=== PATIENT | male | born 1945 | race Caucasian/White ===

== ENCOUNTER 2020-12-03 17:01 | Observation (INO) | payer MEDICARE, OTHER ==
[~2020-12-03] VITALS: Ht 188 cm; Wt 65.8 kg
[~2020-12-03 17:01] MED LIST: ASPIRIN EC81 MG PO; ATORVASTATIN CA20 MG PO; CATAPRES 0.1MG0.1 MG PO; VASOTEC10 MG PO
[2020-12-03 17:39] LABS: HEMOGLOBIN 15.3 gm/dl (14.0-17.5); RED BLOOD COUNT 4.77 M/UL (4.20-5.50)
[2020-12-03 17:54] LABS: BUN/CREATININE RATIO 8 (0-10)
[2020-12-04 05:17] LABS: HEMOGLOBIN 15.6 gm/dl (14.0-17.5); RED BLOOD COUNT 4.86 M/UL (4.20-5.50)
[2020-12-04 05:41] LABS: BUN/CREATININE RATIO 10 (0-10)
[2020-12-04] MEDS ORDERED: VENTOLIN HFA 66.7 GM INH (10:14)
--- NOTE | 2020-12-05 19:05 | NUR ---
reported to dr. penny patient and family refusal to restart another iv access.
--- NOTE | 2020-12-05 19:30 | NUR ---
AFTER REPORT, INFORMED BY AM RN THAT DR BURTON WAS ON THE PHOME FOR ME BECAUSE THE PATIENT WANTED TO LEAVE [place]. TALKED WITH DR BURTON AND SHE INFORMED ME THAT THE PATIENT'S STRESS TEST WAS NORMAL AND THAT HE WAS OK TO BE DISCHARGED HOME. I DISCUSSED INFO WITH THE PATIENT AND FAMILY, BUT THE DAUGHTER WAS UPSET THAT THEY HAD ASKED TO SPEAK TO A TRANSFER WORKER ALL DAY AND NO ONE HAD SEEN THEM. SHE STATED "THIS WAS THE WORST HOSPITAL VISIT SHE HAD EXPERIENCED WITH ANY FAMILY MEMBER". I INFORMED HER THAT I WOULD TRY TO RESOLVE THE ISSUE. I SPOKE TO TRANSFER WORKER VERONICA AND HE IMMEDIATELY CAME TO THE PATIENT'S ROOM. HE THEN CALLED DR BEYER AND SHE CAME TO THE ROOM TO TALK WITH THE PATIENT/FAMILY. I INSTRUCTED ON DC INFO AND THEY APPEARED TO BE VERY SATISFIED.
[2020-12-06] MEDS ORDERED: MEGACE 400400 MG/10 PO (09:41)
== END 2020-12-05 20:38 | disposition home or self-care (01) ==
LOC: ER1 17:01 → M/S 18:21 → CDU 18:21 → M/S 12-04 00:58
PROVIDERS: Emergency Medicine; ADMIT Internal Medicine
DX: R77.8 Other specified abnormalities of plasma proteins (principal); R07.89 Other chest pain; I11.9 Hypertensive heart disease without heart failure; E87.1 Hypo-osmolality and hyponatremia; G93.89 Other specified disorders of brain; J32.8 Other chronic sinusitis; I63.512 Cerebral infarction due to unspecified occlusion or stenosis of left middle cerebral artery; F17.210 Nicotine dependence, cigarettes, uncomplicated; Z88.1 Allergy status to other antibiotic agents; Z88.6 Allergy status to analgesic agent; Z20.822 Contact with and (suspected) exposure to COVID-19; Z86.73 Personal history of transient ischemic attack (TIA), and cerebral infarction without residual deficits
CPT/HCPCS: ECHO; 36415; 70450; 70551; 71045; 78452; 80048; 80053; 82550; 82553; 83605; 83735; 83874; 84484; 85025; 85379; 85730; 87040; 93005; 93017; 93306; 99285; A9502; G0378; J1644; J2785; J7030; U0002

== ENCOUNTER 2021-10-29 12:47 | Observation (INO) | payer MEDICARE, OTHER ==
[~2021-10-29] VITALS: Ht 188 cm; Wt 67.6 kg
[~2021-10-29 12:47] MED LIST changes: +MEGACE 400400 MG/10 PO; +VENTOLIN HFA 66.7 GM INH
[2021-10-29 13:13] LABS: HEMOGLOBIN 9.3 gm/dl (14.0-17.5); RED BLOOD COUNT 3.28 M/UL (4.20-5.50); WHITE BLOOD COUNT 4.2 K/UL (4.5-11.0)
[2021-10-29 13:45] LABS: BUN/CREATININE RATIO 8 (0-10)
[2021-10-29] MEDS ORDERED: CLOPIDOGREL75 MG PO (18:38)
[2021-10-29] MEDS ORDERED: ASPIRIN EC81 MG PO (18:38)
[2021-10-29] MEDS ORDERED: CATAPRES 0.1MG0.1 MG PO (18:39)
[2021-10-30 07:28] LABS: HEMOGLOBIN 9.2 gm/dl (14.0-17.5); RED BLOOD COUNT 3.38 M/UL (4.20-5.50)
[2021-10-30 07:31] LABS: WHITE BLOOD COUNT 2.9 K/UL (4.5-11.0)
[2021-10-30 08:10] LABS: BUN/CREATININE RATIO 9 (0-10)
[2021-10-31 06:38] LABS: HEMOGLOBIN 10.7 gm/dl (14.0-17.5); WHITE BLOOD COUNT 3.4 K/UL (4.5-11.0)
[2021-10-31 06:47] LABS: RED BLOOD COUNT 3.87 M/UL (4.20-5.50)
[2021-10-31 06:57] LABS: BUN/CREATININE RATIO 15 (0-10)
[2021-10-31] MEDS ORDERED: CRESTOR 10 MG T10 MG PO (10:56)
[2021-10-31] MEDS ORDERED: SODIUM CHLORIDE1 G1 PO (10:56)
== END 2021-10-31 12:40 | disposition home or self-care (01) ==
LOC: ER1 12:47 → CDU 18:14 → M/S 18:14
PROVIDERS: Emergency Medicine; Internal Medicine; ADMIT Internal Medicine
DX: G93.40 Encephalopathy, unspecified (principal); E87.1 Hypo-osmolality and hyponatremia; I10 Essential (primary) hypertension; J44.9 Chronic obstructive pulmonary disease, unspecified; K59.00 Constipation, unspecified; E46 Unspecified protein-calorie malnutrition; Z68.1 Body mass index [BMI] 19.9 or less, adult; Z79.02 Long term (current) use of antithrombotics/antiplatelets; Z79.82 Long term (current) use of aspirin; Z79.899 Other long term (current) drug therapy; Z86.73 Personal history of transient ischemic attack (TIA), and cerebral infarction without residual deficits; Z88.0 Allergy status to penicillin; Z88.1 Allergy status to other antibiotic agents; Z88.5 Allergy status to narcotic agent; Z91.14 Patient's other noncompliance with medication regimen; Z95.5 Presence of coronary angioplasty implant and graft
CPT/HCPCS: 0240U; 36415; 70450; 70496; 70498; 70551; 71045; 74018; 80048; 80053; 80307; 81001; 82140; 82436; 82550; 82553; 82607; 83036; 83605; 83735; 83880; 83935; 84100; 84133; 84300; 84439; 84443; 84484; 85025; 86140; 87040; 87086; 93005; 96361; 96374; 96375; 96376; 97161; 97166; 99285; G0378; J0696; J1200; J2060; J3486; J7040; Q9967